=== PATIENT | female | born 1980 | race Two or more races ===

== ENCOUNTER 2023-04-10 18:44 | Emergency (ER) | payer MEDICAID, OTHER ==
[~2023-04-10] VITALS: Ht 160 cm; Wt 100.0 kg
[2023-04-10 19:18] VITALS: BP 100/60
== END 2023-04-10 22:48 | disposition home or self-care (01) ==
LOC: EDBD 18:44 → ER 18:44
DX: F41.9 Anxiety disorder, unspecified (principal); R55 Syncope and collapse; Z98.51 Tubal ligation status
CPT/HCPCS: 93005